=== PATIENT | female | born 1950 | race Two or more races ===

== ENCOUNTER 2018-09-17 07:31 | Outpatient (CLI) | payer OTHER ==
[~2018-09-17 07:31] MED LIST: BACTRIM DS TAB1 EACH PO; Flagyl PO; Intestinex CAP PO; KETO10TA2 PO; LIPITOR40 MG; METFORMIN HCL500 MG; PROTONIX40 MG PO; SYNTHROID75 MCG; VASOTEC5 MG
== END 2018-09-17 07:33 | disposition home or self-care (01) ==
LOC: SONOGRAMA 07:31
DX: E04.1 Nontoxic single thyroid nodule (principal)

== ENCOUNTER 2020-03-08 10:00 | Emergency (ER) | payer OTHER ==
[~2020-03-08] VITALS: Ht 165.1 cm; Wt 78.5 kg
== END 2020-03-08 12:29 | disposition home or self-care (01) ==
LOC: ER 10:00
DX: K29.60 Other gastritis without bleeding (principal)